=== PATIENT | male | born 1970 | race Caucasian/White ===

== ENCOUNTER 2017-03-04 14:35 | Emergency (ER) | payer OTHER ==
--- NOTE | ~2017-03-04 | ER ---
PATIENT'S NAME: ANGELY ROSADO [facility] AGE: 46 Y [address] ROOM: [place] [id number] LOCATION: [facility] ADMIT DATE: 03/04/2017 ER/Outpatient Report DISCHARGE DATE: 03/04/2017 FAMILY PHYSICIAN: Messi Russell MD ATTENDING PHYSICIAN: Cathy Rizzo Time of Arrival: 1435 hours. Time of Evaluation: 1445 hours. CHIEF COMPLAINT: Left thumb laceration. HISTORY OF PRESENT ILLNESS: This is a 46-year-old male who presents to the ER with a left thumb laceration that happened just prior to arrival. The patient states he was at work when it happened. He was opening a box with a knife. It slipped, cut his thumb through his nail. He states that he has full range of motion of his thumb. No numbness or tingling. He is up-to-date on his tetanus shot. He denies any other problems at this time. ALLERGIES: CECLOR AND SULFA. MEDICATIONS: Please see medication list in nurse's notes. PAST MEDICAL HISTORY: Gout. PAST SURGICAL HISTORY: Bilateral knee, sinus surgery, bilateral foot surgery. SOCIAL HISTORY: Denies smoking, drug, or alcohol use. REVIEW OF SYSTEMS: CONSTITUTIONAL: Denies any change in weight or fatigue. MUSCULOSKELETAL: No weakness or myalgias. SKIN: He has a laceration to his left thumbnail. PHYSICAL EXAMINATION: VITAL SIGNS: Weight 85 kg taken, blood pressure is 119/80, pulse 69, respirations 20, temperature 97 degrees tympanically, saturations 96% on room air. [place] Coma Score is 15. GENERAL: An alert, calm, well-developed male, in no acute distress. PATIENT'S NAME: ANGELY ROSADO [facility] AGE: 46 Y [address] ROOM: [place], [place] [address] LOCATION: [facility] ADMIT DATE: 03/04/2017 ER/Outpatient Report DISCHARGE DATE: 03/04/2017 FAMILY PHYSICIAN: Messi Russell MD ATTENDING PHYSICIAN: Cathy Rizzo EXTREMITIES: No clubbing or cyanosis. He does have full range of motion of his left thumb. He has a 1 cm laceration noted to the distal aspect of his thumb and does goes to the corner of his nail. The nail is intact. There is no active bleeding at this time. LABORATORY DATA AND X-RAYS: None were done. IMPRESSION: 1 cm laceration to the distal aspect of his left thumbnail. ASSESSMENT AND PLAN: We did cleanse area with normal saline and mild soap. We dried the area and repaired the thumbnail with Dermabond skin glue. The patient did tolerate this well. We will dismiss the patient to home. He needs to ice and elevate the hand if needed, take Tylenol if needed, and should follow up with his primary care physician as needed. The patient understands and agrees with care. WELLINGTON MARTINEZ PA-C FOR MD OLVIN MARSHALL/layo /[id number] d: t: 03/08/17 1311, OUTPATIENT REPORT
== END 2017-03-04 15:00 | disposition disaster alternative care site (69) ==
LOC: GACC 14:35
PROC: 0HQGXZZ Repair Left Hand Skin, External Approach (ICD-10-PCS; principal; 2017-03-04)
DX: S61.112A Laceration without foreign body of left thumb with damage to nail, initial encounter (principal); Z98.890 Other specified postprocedural states; Z88.2 Allergy status to sulfonamides; Z88.1 Allergy status to other antibiotic agents; Z79.899 Other long term (current) drug therapy; W26.0XXA Contact with knife, initial encounter; Y93.89 Activity, other specified; Y92.69 Other specified industrial and construction area as the place of occurrence of the external cause; Y99.0 Civilian activity done for income or pay

== ENCOUNTER 2017-04-17 23:33 | Emergency (ER) | payer OTHER ==
--- NOTE | ~2017-04-17 | ER ---
PATIENT'S NAME: ANGELY ROSADO [facility] AGE: 46 Y [address] ROOM: [place], [place] [address] LOCATION: [facility] ADMIT DATE: 04/17/2017 ER/Outpatient Report DISCHARGE DATE: 04/17/2017 FAMILY PHYSICIAN: Physician, Unknown ATTENDING PHYSICIAN: Joann Adames Time of Arrival: 2339. Time of Evaluation: 233. CHIEF COMPLAINT: Head injury. HISTORY OF PRESENT ILLNESS: The patient states at about 6:30 this evening he was at work and hit his head on a grill. The patient is a worker at [email or web address]. He states that the right aspect of his forehead bled for about 30 minutes. He currently complains of a 7/10 headache that is frontal in nature and mild nausea. He denies vomiting or changes in vision or weakness or numbness and tingling. The patient did not lose consciousness. PAST MEDICAL HISTORY: Gout. The patient has also had multiple surgeries to feet and knees. SOCIAL HISTORY: The patient denies drugs, alcohol, smoking. MEDICATIONS: Allopurinol 300 mg daily. ALLERGIES: CECLOR AND SULFA. REVIEW OF SYSTEMS: All systems were reviewed by me and negative with the exception of those discussed in the HPI. PHYSICAL EXAMINATION: VITALS: Weight is 84.7 kg, pulse 60, respiratory rate 14, blood pressure 125/83, temperature of 96.8, satting 96% on room air. [place] coma scale of 15. GENERAL: The patient is alert and oriented. There is a small abrasion above right eye that is not currently bleeding. Otherwise, no other trauma noted to head. No evidence of trauma to neck. CHEST: Clear with good air entry bilaterally. CARDIOVASCULAR: Heart is regular in rate and rhythm. No murmurs noted. PATIENT'S NAME: ANGELY ROSADO [facility] AGE: 46 Y [address] ROOM: [place], [place] [address] LOCATION: [facility] ADMIT DATE: 04/17/2017 ER/Outpatient Report DISCHARGE DATE: 04/17/2017 FAMILY PHYSICIAN: Physician, Unknown ATTENDING PHYSICIAN: Joann Adames MUSCULOSKELETAL: The patient moving all extremities spontaneously and has 5/5 strength in all extremities. No sensation deficits in extremities. NEUROLOGICAL: The patient's cranial nerves II through XII are grossly intact. Pupils are equal and reactive and extraocular movements are intact. IMPRESSION: Minor head injury. EMERGENCY DEPARTMENT COURSE: The patient has small abrasion over right forehead from hitting head on grill. No evidence of any major trauma. Neurologically, the patient is functional and his current symptoms are mild. I feel as though further workup is unneeded at this time. The patient was given 500 mg of Tylenol here for minor pain. DISPOSITION: The patient was discharged to home in good condition. MELISSA JIMENEZ MD FOR JOANN ADAMES DO KV/layo /[id number] ATTENDING ADDENDUM: I saw and evaluated the patient. I have discussed with the resident, agree with the resident's findings and plan and agree with the documented note above. The patient did not have a significant mechanism of injury. The incident occurred over 6 hours ago and has a very mild headache and no vomiting. I feel he is at exceedingly low risk of significant brain injury requiring surgical intervention. I have discussed head injury precuations with the paitient as well as return to care insructions. I have asked that he follow up with his primary care provider in 2-3 days. The patient is agreeable and without further questions. JOANN ADAMES DO d: 04/18/17 0404 t: 04/19/17 0546, OUTPATIENT REPORT
== END 2017-04-17 23:58 | disposition disaster alternative care site (69) ==
LOC: GACC 23:33
DX: S00.81XA Abrasion of other part of head, initial encounter (principal); Z88.2 Allergy status to sulfonamides; Z88.1 Allergy status to other antibiotic agents; Z79.899 Other long term (current) drug therapy; Z98.890 Other specified postprocedural states; W22.8XXA Striking against or struck by other objects, initial encounter

== ENCOUNTER 2017-05-16 22:24 | Emergency (ER) | payer OTHER ==
--- NOTE | ~2017-05-16 | ER ---
PATIENT'S NAME: ANGELY ROSADO [facility] AGE: 46 Y [address] ROOM: [place] [address] LOCATION: [facility] ADMIT DATE: 05/16/2017 ER/Outpatient Report DISCHARGE DATE: 05/16/2017 FAMILY PHYSICIAN: Messi Russell MD ATTENDING PHYSICIAN: Ney Powell Time of arrival: 2224 hours. Time of evaluation: 2245 hours. HISTORY OF PRESENT ILLNESS: This is a 46-year-old male. He is previously healthy. He is in with complaint of a painful itchy rash in his groin. He has had this problem intermittently for the past 6 to 12 months. He states that it has flared up over the past week or so, becoming much more severe and itchy. PAST MEDICAL HISTORY: Significant for depression and gout. CURRENT MEDICATIONS: See list. REVIEW OF SYSTEMS: Otherwise negative. SOCIAL HISTORY: He is a nonsmoker. He works at [employer]. PHYSICAL EXAMINATION: GENERAL: Alert and cooperative male, no acute distress. VITAL SIGNS: Stable. SKIN: Warm and dry. Color is normal. PELVIC: In his groin, he had diffuse serpiginous erythematous rash, worsened skin folds consistent with tinea cruris. ASSESSMENT: Tinea cruris. PLAN: Nystatin cream and Diflucan 150 mg every other day for a week. Follow up with his regular doctor as needed. NEY POWELL MD PATIENT'S NAME: ANGELY ROSADO [facility] AGE: 46 Y [address] ROOM: [place], [place] [address] LOCATION: ED ADMIT DATE: 05/16/2017 ER/Outpatient Report DISCHARGE DATE: 05/16/2017 FAMILY PHYSICIAN: Messi Russell MD ATTENDING PHYSICIAN: Ney Powell JDB/modl /[id number] d: 05/17/177 t: 05/17/17 0552, OUTPATIENT REPORT
== END 2017-05-16 22:58 | disposition disaster alternative care site (69) ==
LOC: GMED 22:24
DX: B35.6 Tinea cruris (principal); F32.9 Major depressive disorder, single episode, unspecified; M10.9 Gout, unspecified; Z88.2 Allergy status to sulfonamides; Z88.8 Allergy status to other drugs, medicaments and biological substances; Z79.899 Other long term (current) drug therapy; Z98.890 Other specified postprocedural states